=== PATIENT | male | born 1995 ===

== ENCOUNTER 2018-10-27 20:50 | Emergency (ER) | payer OTHER ==
[2018-10-27 21:00] VITALS: BP 126/79; O2SAT 98
[2018-10-27 21:36] LABS: INFLUENZA A B NEGATIVE FOR FLU A/B (NEGATIVE)
--- NOTE | 2018-10-27 21:45 | C.PDOC ---
History Of Present Illness 23 year old male presents to the emergency department with complaints of headache, body aches, and sore throat for the last five days. Patient states that he has not taken anything OTC for the symptoms. He reports possible sick contact, and states that he has not gotten a flu vaccine this season. Patient denies neck stiffness and rash. HPI: Influenza Time Seen by Provider: 10/27/18 21:07 Chief Complaint: Headache History Per: Patient Exam Limitations: no limitations Onset/Duration Of Symptoms: Days (5) Symptoms include: headache, bodyaches, sore throat. denies: rash, other (neck stiffness) Hx Influenza Vaccination: No Past Medical History Reviewed: Historical Data, Nursing Documentation, Vital Signs Vital Signs: Last Vital Signs Temp 101 F H 10/27/18 20:53 Pulse 108 H 10/27/18 20:53 Resp 22 10/27/18 20:53 BP 126/79 10/27/18 20:53 Pulse Ox 98 10/27/18 20:53 - Medical History PMH: No Chronic Diseases Surgical History: No Surg Hx Family History: States: No Known Family Hx - Social History Hx Alcohol Use: No Hx Substance Use: No - Immunization History Hx Tetanus Toxoid Vaccination: No Hx Influenza Vaccination: No Hx Pneumococcal Vaccination: No Review Of Systems Constitutional: Negative for: Fever ENT: Positive for: Throat Pain Respiratory: Negative for: Cough Gastrointestinal: Negative for: Nausea, Vomiting, Abdominal Pain, Diarrhea Musculoskeletal: Positive for: Other (body aches). Negative for: Neck Pain Neurological: Positive for: Headache Physical Exam - Physical Exam Appears: Well, Non-toxic, No Acute Distress Skin: Normal Color, Warm, Dry Head: Normacephalic Eye(s): bilateral: Normal Inspection, PERRL, EOMI Ear(s): Left: TM Erythema, Right: Normal Nose: Normal Oral Mucosa: Moist Throat: Other (uvula enlarged and erythematous) Neck: Normal, Supple Chest: Symmetrical, No Tenderness Cardiovascular: Rhythm Regular, No Murmur Respiratory: Normal Breath Sounds, No Rales, No Rhonchi, No Wheezing Gastrointestinal/Abdominal: Soft, No Tenderness, No Guarding, No Rebound Extremity: Normal ROM Neurological/Psych: Oriented x3, Normal Speech Medical Decision Making Medical Decision Making: pt with myalgia, headache, fever,. no neck stiffness. x 4 days. pt non toxic appearing, neg flu and strep swabs, feels better after motrin. will dc with motrin, pmd f/u - ECG O2 Sat by Pulse Oximetry: 98 (RA) Pulse Ox Interpretation: Normal Disposition Counseled Patient/Family Regarding: Studies Performed, Diagnosis, Need For Followup, Rx Given - Disposition Disposition: HOME/ ROUTINE Disposition Time: 21:51 Condition: IMPROVED Additional Instructions: Drink increased fluids. Take ibuprofen every 6 hours for pain or fever. Follow up with your doctor in 1-2 days. Increase bed rest. Return to ER for any worsening symptoms. Prescriptions: Ibuprofen [Motrin] 600 mg PO TID #30 tab Instructions: Viral Syndrome (DC) Forms: Gen Discharge Inst Yakut, Senseg (Yakut) Print Language: NIGERIEN - Clinical Impression Clinical Impression: Viral syndrome - PA / EMBEDDED NURSE / Resident Statement MD/DO has reviewed & agrees with the documentation as recorded. - Scribe Statement The provider has reviewed the documentation as recorded by the Scribe (Judson Krishnan) All medical record entries made by the Scribe were at my direction and personally dictated by me. I have reviewed the chart and agree that the record accurately reflects my personal performance of the history, physical exam, medical decision making, and the department course for this patient. I have also personally directed, reviewed, and agree with the discharge instructions and disposition.
[2018-10-27 21:48] VITALS: PULSE 85; RESP 18; TEMP 99.4
== END 2018-10-27 21:57 | disposition home or self-care (01) ==
LOC: C.ER 20:50
DX: B34.9 Viral infection, unspecified (principal)